=== PATIENT | female | born 1945 | race Caucasian/White ===

== ENCOUNTER 2017-03-07 08:44 | Emergency (ER) | payer MEDICARE ==
[~2017-03-07] VITALS: Ht 167.6 cm; Wt 79.0 kg
[~2017-03-07 08:44] MED LIST: AMLO2.5T PO; ASPI81 PO; CARV12.52 PO; GLIM1TAB PO; GLUCTAB PO; HYDR-2768 PO; LEVO125T3 PO; LISI-363 PO; ZOCO80TA PO; ZOFR4TAB3 SL
[2017-03-07 08:46] VITALS: PULSE 60; RESP 16; TEMP 97.8; O2SAT 100
[2017-03-07 08:56] VITALS: BP 189/70
[2017-03-07] MEDS ORDERED: HYDR25TA5 PO (09:01)
[2017-03-07] MEDS ORDERED: CARV12.52 PO (09:01)
[2017-03-07] MEDS ORDERED: LEVO125T4 PO (09:01)
[2017-03-07] MEDS ORDERED: METF1000 PO (09:01)
[2017-03-07] MEDS ORDERED: SIMV80TA PO (09:01)
[2017-03-07] MEDS ORDERED: AMLO2.5T PO (09:01)
[2017-03-07] MEDS ORDERED: LISI-515 PO (09:01)
[2017-03-07] MEDS ORDERED: GLIM1TAB PO (09:01)
[2017-03-07] MEDS ORDERED: ASPI81TA11 PO (09:01)
--- NOTE | 2017-03-07 09:07 | PD ---
HPI Chief Complaint: Laceration/Skin Injury Time Seen by Provider: 08:52 Travel History International Travel<30 days: No Contact w/Intl Traveler<30days: No Traveled to known affect area: No History of Present Illness HPI 72-year-old female states she had a trip and fall and hit her head. She has a laceration to the center of her forehead. She did not lose consciousness. She denies pain anywhere else. She states she is on a baby aspirin. She is here to see if the laceration needs repair. PFSH Past Medical History Hx Anticoagulant Therapy: Yes (ASPIRIN) Arthritis: No Asthma: No Heart Rhythm Problems: No Cancer: No Cardiovascular Problems: Yes (HTN, CHOL) High Cholesterol: Yes Chest Pain: Yes Congestive Heart Failure: No COPD: No Cerebrovascular Accident: No Diabetes: Yes Patient Takes Glucophage: Yes Diminished Hearing: No Endocrine: Yes Gastrointestinal Disorders: Yes (OCCAS INDEGESTION; ) GERD: No Genitourinary: No Headaches: No Hepatitis: No Hiatal Hernia: No Hypertension: Yes Immune Disorder: No Kidney Stones: No Medical other: No (PLEASE NOTE: PT'S 02/11) Musculoskeletal: No Neurologic: No Psychiatric: No Reproductive: No Respiratory: No Immunizations Current: Yes Migraines: No Myocardial Infarction: No Renal Failure: No Seizures: No Sleep Apnea: No Thyroid Disease: Yes Ulcer: No Tetanus Vaccination: < 5 Years ?: Not Menopausal: Yes Tubal Ligation: Yes Past Surgical History Abdominal Surgery: Yes (APPY ) Appendectomy: Yes Body Medical Devices: STENT Cardiac Surgery: No Cholecystectomy: No Coronary Stent: Yes Ear Surgery: No Endocrine Surgery: No Eye Surgery: Yes (l eye cataract) Genitourinary Surgery: No Gynecologic Surgery: No Hysterectomy: No Joint Replacement: No Neurologic Surgery: No Pacemaker: No Thoracic Surgery: No Other Surgery: Yes Social History Alcohol Use: No Tobacco Use: No Substance Use: No Allergies-Medications (Allergen,Severity, Reaction): Coded Allergies: No Known Allergies (Verified , 03/07/17) Reported Meds & Prescriptions Reported Meds & Active Scripts Active Reported Simvastatin 80 Mg Tab 80 Mg PO DAILY Lisinopril 20 Mg Tab 20 Mg PO DAILY Metformin (Metformin HCl) 1,000 Mg Tab 1,000 Mg PO BIDPC With meals Levothyroxine (Levothyroxine Sodium) 125 Mcg Tab 125 Mcg PO DAILY Hydrochlorothiazide 25 Mg Tab 25 Mg PO DAILY Glimepiride 1 Mg Tab 1 Mg PO DAILY Take with breakfast or first main meal Carvedilol 12.5 Mg Tab 12.5 Mg PO BID Aspirin EC (Aspirin) 81 Mg Tabdr 81 Mg PO DAILY Amlodipine (Amlodipine Besylate) 2.5 Mg Tab 2.5 Mg PO DAILY Review of Systems Except as stated in HPI: all other systems reviewed are Neg Physical Exam Narrative GENERAL: Well-nourished, well-developed patient. SKIN: Warm and dry. HEAD: Normocephalic, in between eyebrows there is approximately 1 cm vertical simple laceration noted EYES: No injection or drainage. ENT: No nasal drainage noted. NECK: Supple, trachea midline. Nontender in midline and with range of motion CARDIOVASCULAR: Regular rate and rhythm RESPIRATORY: Breath sounds equal bilaterally. No accessory muscle use. GASTROINTESTINAL: Abdomen soft, non-tender, nondistended. BACK: Nontender without obvious deformity. Extremities: Nontender over main joints NEUROLOGICAL: Awake and alert. Motor and sensory grossly within normal limits. Normal speech. Data Data Last Documented VS Vital Signs Date Time Temp Pulse Resp B/P Pulse Ox O2 Delivery O2 Flow Rate FiO2 03/07/17 08:56 189/70 03/07/17 08:46 97.8 60 16 100 Orders Lidocai-Epi 2%-1:100,000 Inj (Xylocaine- (03/07/17 09:15) MDM Medical Decision Making Medical Screen Exam Complete: Yes Emergency Medical Condition: Yes Medical Record Reviewed: Yes (past history confirmed) Differential Diagnosis Laceration, doubt fracture, doubt bleed Narrative Course Patient agrees to hold on imaging and provided options for laceration repair. She agrees to suture placement. Patient denies any new complaints, all questions answered. Patient knows that follow up is incumbent on them and to return to the emergency room immediately if new or worsening symptoms develop. Patient given strict return precautions, vitals reviewed and are normal, agrees to further workup as an outpatient. Procedures Procedure Narrative LACERATION LOCATION: Forehead in between eyebrows LENGTH: 1 cm NUMBER OF STITCHES: 3 REPAIR: The area of the laceration was prepped with Betadine and sterilely draped. The laceration was infiltrated with 2% lidocaine with epinephrine. The wound was copiously irrigated and explored without evidence of foreign body or neurovascular injury. The wound was closed using 5-0 Prolene. This was a single layer repair. A sterile dressing was applied. The patient was advised to keep the dressing clean and dry. Patient tolerated the procedure well. Diagnosis Primary Impression: Laceration of forehead Qualified Code: S01.81XA - Laceration of forehead, initial encounter Patient Instructions: Acute Wound Care (DC), General Instructions Additional Instructions: return as needed, follow with primary in 5-7 days for suture removal Med/Other Pt SpecificInfo: No Change to Meds Disposition: 01 DISCHARGE HOME Condition: Stable Sol Neff MD March 07, 2017 09:07
[2017-03-07] MEDS ORDERED: LIDOCAINE 2%/EPINEPHrine 1:100,000 30ML MDV INFIL ONE (09:15)
== END 2017-03-07 09:43 | disposition home or self-care (01) ==
LOC: PHEFT 08:44
DX: S01.81XA Laceration without foreign body of other part of head, initial encounter (principal); W01.0XXA Fall on same level from slipping, tripping and stumbling without subsequent striking against object, initial encounter
CPT/HCPCS: 12011